=== PATIENT | female | born 1980 | race Hispanic/Latino ===

== ENCOUNTER 2018-06-10 16:06 | Emergency (ER) | payer OTHER ==
[2018-06-10] MEDS ORDERED: MORPHINE IV ONE (16:42)
[2018-06-10] MEDS ORDERED: NACL 0.9% 1000 ML 1,000 ML IV ONE (16:42)
[2018-06-10] MEDS ORDERED: ZOFRAN IV ONE (16:42)
--- NOTE | 2018-06-10 16:49 | Emergency Department Report ---
<ANDERS NORRIS - Last Filed: 06/10/18 22:12> ED Abdominal Pain HPI - General Chief Complaint: Abdominal Pain Stated Complaint: ABD PAIN Time Seen by Provider: 06/10/18 16:42 - Related Data Previous Rx's Medication Instructions Recorded Last Taken Type Ibuprofen [Motrin 600 MG tab] 600 mg PO Q8H PRN #30 tablet 06/10/18 Unknown Rx Allergies Allergy/AdvReac Type Severity Reaction Status Date / Time No Known Allergies Allergy Unverified 06/10/18 16:20 ED Past Medical Hx - Medications Home Medications: Home Medications Medication Instructions Recorded Confirmed Last Taken Type Ibuprofen [Motrin 600 MG tab] 600 mg PO Q8H PRN #30 tablet 06/10/18 Unknown Rx ED Physical Exam - Head Head exam: Present: atraumatic, normocephalic - Eye Eye exam: Present: normal appearance, PERRL, EOMI - ENT ENT exam: Present: mucous membranes moist - Neck Neck exam: Present: normal inspection, full ROM - Respiratory Respiratory exam: Present: normal lung sounds bilaterally. Absent: respiratory distress - Cardiovascular Cardiovascular Exam: Present: regular rate, normal rhythm. Absent: systolic murmur, diastolic murmur, rubs, gallop - GI/Abdominal GI/Abdominal exam: Present: tenderness (right lower quadrant). Absent: hypoactive bowel sounds - Extremities Exam Extremities exam: Present: normal inspection, full ROM - Back Exam Back exam: Present: normal inspection, full ROM - Neurological Exam Neurological exam: Present: alert, oriented X3 - Psychiatric Psychiatric exam: Present: normal affect, normal mood - Skin Skin exam: Present: warm, dry, intact ED Course - Reevaluation(s) Reevaluation #1: 06/10/18 23:[address] Mitch Jordan [employer] provider. He recommends patient to follow up in his clinic next week. ED Medical Decision Making - Lab Data Result diagrams: 06/10/18 16:26 06/10/18 16:26 - Radiology Data FINAL REPORT PROCEDURE: Transabdominal pelvic ultrasound with Doppler. TECHNIQUE: Real-time transabdominal sonography in multiple planes of the pelvis was performed with image documentation. Grayscale, color flow Doppler imaging and velocity spectral waveform analysis of the ovaries was employed (duplex imaging). CPT 28290 and 77369 HISTORY: Right lower quadrant pain. COMPARISON: No prior studies are available for comparison. FINDINGS: The uterus measures 8.1 centimeters x 4.5 centimeters x 5.8 centimeters. The myometrium appears uniform. The endometrial echo complex measures 7.6 millimeters. The left ovary appears normal. There is normal ovarian blood flow demonstrated by Doppler spectral analysis. The right ovary is not visualized. There is no fluid in the cul-de-sac. IMPRESSION: Nonvisualization of the right ovary. Transcribed By: ELO Dictated By: BRITTANI MERRILL MD Electronically Authenticated By: BRITTANI MERRILL MD Signed Date/Time: 06/10/182139 DD/ 42 TD/TT: 06/10/182142 - Medical Decision Making FINAL REPORT PROCEDURE: Transabdominal pelvic ultrasound with Doppler. TECHNIQUE: Real-time transabdominal sonography in multiple planes of the pelvis was performed with image documentation. Grayscale, color flow Doppler imaging and velocity spectral waveform analysis of the ovaries was employed (duplex imaging). CPT 14054 and 50176 HISTORY: Right lower quadrant pain. COMPARISON: No prior studies are available for comparison. FINDINGS: The uterus measures 8.1 centimeters x 4.5 centimeters x 5.8 centimeters. The myometrium appears uniform. The endometrial echo complex measures 7.6 millimeters. The left ovary appears normal. There is normal ovarian blood flow demonstrated by Doppler spectral analysis. The right ovary is not visualized. There is no fluid in the cul-de-sac. IMPRESSION: Nonvisualization of the right ovary. Transcribed By: [facility] Dictated By: BRITTANI MERRILL MD Electronically Authenticated By: BRITTANI MERRILL MD Signed Date/Time: 06/10/182139 DD/ 42 TD/TT: 06/10/182142 ED Disposition Clinical Impression: Right lower quadrant pain Disposition: - TO HOME OR SELFCARE Is pt being admited?: No Does the pt Need Aspirin: No Condition: Stable Instructions: Abdominal Pain (ED) Additional Instructions: Please take pain medication as needed. Spoke with Dr. Mitch Jordan he will like to see you in his office next week. I have listed all his information below and your discharge summary. Prescriptions: Ibuprofen [Motrin 600 MG tab] 600 mg PO Q8H PRN #30 tablet PRN Reason: Pain Referrals: PRIMARY CARE, [Primary Care Provider] - 3-5 Days MITCH JORDAN MD [Staff Physician] - 3-5 Days Forms: Accompanied Note, Work/School Release Form(ED) <PIPPA KIRBY - Last Filed: 06/14/18 11:22> ED Abdominal Pain HPI - General Source: patient Mode of arrival: Ambulatory Limitations: No Limitations - History of Present Illness Initial Comments: Mrs. Pavon is a 38-year-old female with history of thyroid disease on levothyroxine and presents for right lower quadrant pain. Pain began during a ski trip last weekend. Right lower quadrant burning sharp pain which became severe today. Pain is worse with walking and moving coughing. Hurts to even put on her jeans. Positive bloating. Last ate food last night. Has had history of recurrent monthly abdominal pain for the past 6 years mostly lower pelvic pain just after menses which lasts for 2 weeks. Extensive evaluation years ago by ophthalmic nurse. No current PCP Her father is a retired physician. Her father provides precriptions for levothyroxine 50 micrograms. She has taken his medications since age 11. MD Complaint: abdominal pain -: Gradual, week(s) (1) Location: RLQ Radiation: back Severity: severe Quality: sharp, burning Consistency: constant Worsens With: movement ED Review of Systems ROS: Stated complaint: ABD PAIN Other details as noted in HPI Comment: All other systems reviewed and negative Constitutional: malaise. denies: fever Respiratory: denies: cough Gastrointestinal: abdominal pain, nausea. denies: vomiting ED Past Medical Hx - Past Medical History Previous Medical History?: No - Surgical History Additional Surgical History: C/S - Social History Smoking Status: Never Smoker Substance Use Type: None ED Physical Exam - General Limitations: No Limitations General appearance: alert, in no apparent distress - Head Head exam: Present: atraumatic, normocephalic - Eye Eye exam: Present: normal appearance - ENT ENT exam: Present: mucous membranes moist - Neck Neck exam: Present: normal inspection - Respiratory Respiratory exam: Present: normal lung sounds bilaterally. Absent: respiratory distress, wheezes, rales, rhonchi - Cardiovascular Cardiovascular Exam: Present: regular rate, normal rhythm, normal heart sounds. Absent: systolic murmur, diastolic murmur, rubs, gallop - GI/Abdominal GI/Abdominal exam: Present: soft, tenderness, guarding, hypoactive bowel sounds. Absent: rebound - Extremities Exam Extremities exam: Present: normal inspection - Back Exam Back exam: Present: normal inspection - Neurological Exam Neurological exam: Present: alert, oriented X3 - Psychiatric Psychiatric exam: Present: normal affect, normal mood - Skin Skin exam: Present: warm, dry, intact, normal color. Absent: rash ED Course Vital Signs 06/10/18 06/10/18 16:20 23:17 Temperature 97.7 F 98.1 F Pulse Rate 67 60 Respiratory 16 16 Rate Blood Pressure 110/67 Blood Pressure 100/58 [Left] O2 Sat by Pulse 100 97 Oximetry ED Medical Decision Making - Lab Data Result diagrams: 06/10/18 16:26 06/10/18 16:26 Laboratory Results - last 24 hr 06/10/18 06/10/18 06/10/18 16:22 16:26 16:26 WBC 7.6 RBC 4.02 Hgb 13.1 Hct 39.2 MCV 98 H MCH 33 H MCHC 34 RDW 13.7 Plt Count 272 Lymph % (Auto) 33.1 Simpson % (Auto) 5.4 Eos % (Auto) 1.6 Baso % (Auto) 0.7 Lymph # 2.5 Simpson # 0.4 Eos # 0.1 Baso # 0.1 Seg Neutrophils % 59.2 Seg Neutrophils # 4.5 Sodium 139 Potassium 3.7 Chloride 103.1 Carbon Dioxide 24 Anion Gap 16 BUN 12 Creatinine 0.5 L Estimated GFR > 60 BUN/Creatinine Ratio 24 Glucose 79 POC Glucose 69 L Calcium 8.8 Total Bilirubin 0.50 AST 16 ALT 11 Alkaline Phosphatase 57 Total Protein 6.8 Albumin 4.5 Albumin/Globulin Ratio 2.0 Lipase 29 HCG, Qual Urine Color Urine Turbidity Urine pH Ur Specific [place] Urine Protein Urine Glucose (UA) Urine Ketones Urine Blood Urine Nitrite Urine Bilirubin Urine Urobilinogen Ur Leukocyte Esterase Urine WBC (Auto) Urine RBC (Auto) Urine Mucus 06/10/18 06/10/18 16:26 17:45 WBC RBC Hgb Hct MCV MCH MCHC RDW Plt Count Lymph % (Auto) Simpson % (Auto) Eos % (Auto) Baso % (Auto) Lymph # Simpson # Eos # Baso # Seg Neutrophils % Seg Neutrophils # Sodium Potassium Chloride Carbon Dioxide Anion Gap BUN Creatinine Estimated GFR BUN/Creatinine Ratio Glucose POC Glucose Calcium Total Bilirubin AST ALT Alkaline Phosphatase Total Protein Albumin Albumin/Globulin Ratio Lipase HCG, Qual Negative Urine Color Yellow Urine Turbidity Clear Urine pH 6.0 Ur Specific [place] 1.032 H Urine Protein <15 mg/dl Urine Glucose (UA) Neg Urine Ketones 80 Urine Blood Neg Urine Nitrite Neg Urine Bilirubin Neg Urine Urobilinogen < 2.0 Ur Leukocyte Esterase Neg Urine WBC (Auto) 1.0 Urine RBC (Auto) 2.0 Urine Mucus 2+ - Radiology Data Radiology results: report reviewed CT abdomen and pelvis no acute process, most likely normal appendix seen according to radiology report - Medical Decision Making Right lower quadrant pain over the last week worsening today, CT did not show inflammatory changes in the region of the appendix. Normal white count. Appendicitis is not likely in this scenario considering 5-6 days of symptoms. Mrs. Pavon several times politely declined any analgesia. When I reassessed her prior to handoff to my colleague, she had her hands and arms crossed over her lower abdomen. She did not appear to have peritoneal irritation. Will obtain pelvic ultrasound to rule in or rule out ovarian cyst rupture or ovarian torsion. CBC chemistry within normal limits with contaminated urine analysis. Critical care attestation.: If time is entered above; I have spent that time in minutes in the direct care of this critically ill patient, excluding procedure time. ED Disposition Is pt being admited?: No Does the pt Need Aspirin: No
[2018-06-10 16:50] LABS: Basophils # (Auto) 0.1 K/mm3 (0.0-0.1); Basophils % (Auto) 0.7 % (0.0-1.8); Eosinophils # (Auto) 0.1 K/mm3 (0.0-0.4); Eosinophils % (Auto) 1.6 % (0.0-4.3); Hematocrit 39.2 % (30.3-42.9); Hemoglobin 13.1 gm/dl (10.1-14.3); Lymphocytes # (Auto) 2.5 K/mm3 (1.2-5.4); Lymphocytes % (Auto) 33.1 % (13.4-35.0); Mean Corpuscular HGB Conc 34 % (30-34); Mean Corpuscular Volume 98 fl (79-97); Monocytes # (Auto) 0.4 K/mm3 (0.0-0.8); Monocytes % (Auto) 5.4 % (0.0-7.3); Platelet Count 272 K/mm3 (140-440); Red Blood Count 4.02 M/mm3 (3.65-5.03); Red Cell Distribution Width 13.7 % (13.2-15.2)
[2018-06-10 17:03] LABS: Alanine Aminotransferase 11 units/L (7-56); Albumin 4.5 g/dL (3.9-5); BUN/Creatinine Ratio 24; Blood Urea Nitrogen 12 mg/dL (7-17); Calcium 8.8 mg/dL (8.4-10.2); Hemolysis Index 10
[2018-06-10 18:08] LABS: Bilirubin,Urine NEG (Negative); Blood,Urine NEG (Negative); Color,Urine Yellow (Yellow); Mucus,Urine 2+ /HPF; Protein,Urine <15 mg/dL mg/dL (Negative); Urobilinogen,Urine < 2.0 mg/dL (<2.0)
--- NOTE | 2018-06-10 18:19 | Cat Scan Report ---
FINAL REPORT PROCEDURE: CT abdomen and pelvis with contrast. TECHNIQUE: Computerized axial tomography of the abdomen and pelvis was performed after the IV inject ion of iodinated nonionic contrast. HISTORY: Right lower quadrant abdominal pain. COMPARISON: No prior studies are available for comparison. FINDINGS: The lung bases are clear. There are no pleural effusions. The heart size is normal. The liver, pancre as and spleen appear normal. The gallbladder is present. The adrenal glands are not enlarged. Both ki dneys appear normal in size and configuration. The abdominal aorta has a normal caliber. There is a r etro aortic left renal vein. There is no retroperitoneal adenopathy. The unopacified gastrointestinal tract is unremarkable. I believe there is a normal appendix present. The bladder, uterus and adnexal regions appear normal. The regional skeleton appears intact. IMPRESSION: Normal studies of the abdomen and pelvis.
--- NOTE | 2018-06-10 21:40 | Ultrasound Report ---
FINAL REPORT PROCEDURE: Transabdominal pelvic ultrasound with Doppler. TECHNIQUE: Real-time transabdominal sonography in multiple planes of the pelvis was performed with i mage documentation. Grayscale, color flow Doppler imaging and velocity spectral waveform analysis of the ovaries was employed (duplex imaging). CPT 41995 and 35044 HISTORY: Right lower quadrant pain. COMPARISON: No prior studies are available for comparison. FINDINGS: The uterus measures 8.1 centimeters x 4.5 centimeters x 5.8 centimeters. The myometrium appears unifo rm. The endometrial echo complex measures 7.6 millimeters. The left ovary appears normal. There is no rmal ovarian blood flow demonstrated by Doppler spectral analysis. The right ovary is not visualized. There is no fluid in the cul-de-sac. IMPRESSION: Nonvisualization of the right ovary.
--- NOTE | 2018-06-10 21:44 | Ultrasound Report ---
FINAL REPORT PROCEDURE: Transvaginal pelvic ultrasound with Doppler. TECHNIQUE: Real-time transvaginal sonography in multiple planes of the pelvis was performed with jojo ge documentation. Grayscale, color flow Doppler imaging and velocity spectral waveform analysis of th e ovaries was employed (duplex imaging). CPT 58302 and 24968 HISTORY: Right lower quadrant pain. COMPARISON: No prior studies are available for comparison. FINDINGS: The uterine myometrium appears homogeneous. There are no focal masses. The endometrial echo complex a ppears normal. There is a cyst in the right ovary measuring 1.9 centimeters. The left ovary appears n ormal. There is bilateral ovarian blood flow demonstrated by Doppler spectral analysis. There is no f ree fluid in the cul-de-sac. IMPRESSION: Small right ovarian cyst.
[2018-06-10 23:18] VITALS: BP 100/58
== END 2018-06-10 23:32 | disposition home or self-care (01) ==
LOC: ED 16:06
DX: R10.31 Right lower quadrant pain (principal); E07.9 Disorder of thyroid, unspecified
CPT/HCPCS: 36415; 74177; 76830; 80053; 81001; 82962; 83690; 84703; 85025; 87086; 93975; 99284; J7030; Q9967; 87076; 87186; J2270; J2405